=== PATIENT | male | born 2005 | race Caucasian/White ===

== ENCOUNTER 2024-03-26 14:36 | Emergency (ER) | payer SELFPAY ==
[~2024-03-26] VITALS: Ht 177.8 cm; Wt 80.0 kg
[2024-03-26] MEDS: diphenhydrAMINE 50MG/ML VIAL IV STA (15:27)
[2024-03-26] MEDS: NS 1,000 ML IV ONE (15:27)
[2024-03-26 15:32] LABS: BASO # 0.1 10^3/uL (0.0-0.2); EOS # 0.2 10^3/uL (0.0-0.5); EOS % 2.7 % (0.0-3.0); HEMATOCRIT 45.4 % (42.0-52.0); HEMOGLOBIN 15.8 g/dl (13.5-17.5); LYMPH # 1.7 10^3/uL (1.5-5.0); LYMPH % 28.3 % (24.0-44.0); MEAN CORPUSCULAR HGB CONC 34.8 g/dl (32.0-36.5); MEAN CORPUSCULAR VOLUME 86.1 fl (80.0-96.0); MONO # 0.6 10^3/uL (0.0-0.8); MONO % 9.8 % (2.0-8.0); NEUTROPHILS # 3.4 10^3/uL (1.5-8.5); NEUTROPHILS % 57.9 % (36.0-66.0); PLATELET COUNT, AUTOMATED 298 10^3/uL (150-450); RED BLOOD COUNT 5.27 10^6/uL (4.30-6.10); WHITE BLOOD COUNT 5.9 10^3/uL (4.0-10.0)
[2024-03-26] MEDS ORDERED: ISOVUE-370 76% 100ML VIAL As Ordered ONE (15:48)
[2024-03-26 15:58] LABS: LIPASE 35 U/L (12-53)
[2024-03-26 16:00] LABS: ALBUMIN 4.5 G/DL (3.2-5.2); ALKALINE PHOSPHATASE 45 U/L (46-116); ALT/SGPT 36 U/L (7.0-40); AST/SGOT 17 U/L (<34); BILIRUBIN,DIRECT 0.4 MG/DL (<0.4); BILIRUBIN,TOTAL 1.1 MG/DL (0.3-1.2); BLOOD UREA NITROGEN 15 MG/DL (9-23); CALCIUM LEVEL 9.7 MG/DL (8.5-10.1); CARBON DIOXIDE LEVEL 32 MMOL/L (20-31); CHLORIDE LEVEL 105 MMOL/L (98-107); CREATININE FOR GFR 0.77 MG/DL (0.70-1.30); GLUCOSE, FASTING 90 MG/DL (60-100); MAGNESIUM LEVEL 2.2 MG/DL (1.8-2.4); POTASSIUM SERUM 3.9 MMOL/L (3.5-5.1); SODIUM LEVEL 141 MMOL/L (136-145); TOTAL PROTEIN 7.5 G/DL (5.7-8.2)
[2024-03-26 18:51] LABS: CK-MB VALUE MASS < 1.0 NG/ML (<3.6)
[2024-03-26] MEDS ORDERED: BENA25CA4 PO (19:23)
[2024-03-26] MEDS ORDERED: PRED20TA PO (19:23)
[2024-03-26 19:33] VITALS: BP 119/64; TEMP 97.2; O2SAT 99
[2024-03-26 20:00] LABS: CPK CREATINE PHOSPHOKINASE 78 U/L (46-171); MB/CK RELATIVE INDEX 1.28 (< OR =4)
[2024-03-27 16:05] LABS: HIV 1&2 SCREEN NEGATIVE (NEGATIVE)
== END 2024-03-26 19:36 | disposition home or self-care (01) ==
LOC: M ED 14:36
DX: K31.84 Gastroparesis (principal); L50.9 Urticaria, unspecified; Z79.52 Long term (current) use of systemic steroids; Z79.899 Other long term (current) drug therapy
CPT/HCPCS: 74177; 80047; 80048; 80076; 82550; 82553; 83690; 83735; 84443; 84484; 85025; 87389; 93005; 93041; 99284; J1200; Q9967

== ENCOUNTER 2024-03-30 14:37 | Emergency (ER) | payer SELFPAY ==
[~2024-03-30] VITALS: Ht 177.8 cm; Wt 79.8 kg
[~2024-03-30 14:37] MED LIST: BENA25CA4 PO; PRED20TA PO
[2024-03-30] MEDS: ACETAMINOPHEN *IV* 1,000 MG in IV 1 EA IV ONE (15:30)
[2024-03-30] MEDS: ONDANSETRON 4MG 2ML VIAL IV ONE (15:31)
[2024-03-30] MEDS: KETOROLAC 30 MG/ML 1ML VIAL IV ONE (15:31)
[2024-03-30] MEDS: NS 1,000 ML IV ONE (15:32)
[2024-03-30 15:50] LABS: BASO # 0.1 10^3/uL (0.0-0.2); BASO % 0.8 % (0.0-1.0); EOS # 0.2 10^3/uL (0.0-0.5); EOS % 2.5 % (0.0-3.0); HEMATOCRIT 44.8 % (42.0-52.0); HEMOGLOBIN 15.7 g/dl (13.5-17.5); LYMPH # 1.9 10^3/uL (1.5-5.0); LYMPH % 23.9 % (24.0-44.0); MEAN CORPUSCULAR HEMOGLOBIN 30.1 pg (27.0-33.0); MEAN CORPUSCULAR VOLUME 85.8 fl (80.0-96.0); MONO # 0.7 10^3/uL (0.0-0.8); MONO % 9.2 % (2.0-8.0); NEUTROPHILS # 4.9 10^3/uL (1.5-8.5); NEUTROPHILS % 63.5 % (36.0-66.0); PLATELET COUNT, AUTOMATED 312 10^3/uL (150-450); RED BLOOD COUNT 5.22 10^6/uL (4.30-6.10); WHITE BLOOD COUNT 7.7 10^3/uL (4.0-10.0)
[2024-03-30 15:51] LABS: APPEARANCE, URINE CLEAR (CLEAR); BACTERIA, URINE AUTO NEGATIVE (NEGATIVE); BILIRUBIN, URINE AUTO NEGATIVE (NEGATIVE); BLOOD, URINE BLOOD NEGATIVE (NEGATIVE); COLOR, URINE YELLOW (YELLOW); GLUCOSE, URINE (UA) AUTO NEGATIVE (NEGATIVE); KETONE, URINE AUTO NEGATIVE (NEGATIVE); LEUKOCYTE ESTERASE, URINE AUTO NEGATIVE (NEGATIVE); NITRITE, URINE AUTO NEGATIVE (NEGATIVE); PROTEIN, URINE AUTO NEGATIVE (NEGATIVE); RBC, URINE AUTO 1 /HPF (0-3); SQUAMOUS EPITHELIAL CELL UR AU 0 /HPF (0-6); UROBILINOGEN, URINE AUTO 0.2 mg/dL (0.0-2.0); WBC, URINE AUTO 0 /HPF (0-3)
[2024-03-30 16:06] LABS: LIPASE 35 U/L (12-53)
[2024-03-30 16:08] LABS: ALBUMIN 4.6 G/DL (3.2-5.2); ALKALINE PHOSPHATASE 44 U/L (46-116); ALT/SGPT 33 U/L (7.0-40); AST/SGOT 13 U/L (<34); BILIRUBIN,DIRECT 0.3 MG/DL (<0.4); BILIRUBIN,TOTAL 0.8 MG/DL (0.3-1.2); BLOOD UREA NITROGEN 14 MG/DL (9-23); CALCIUM LEVEL 10.1 MG/DL (8.5-10.1); CARBON DIOXIDE LEVEL 29 MMOL/L (20-31); CHLORIDE LEVEL 106 MMOL/L (98-107); CREATININE FOR GFR 0.71 MG/DL (0.70-1.30); GLUCOSE, FASTING 107 MG/DL (60-100); POTASSIUM SERUM 3.7 MMOL/L (3.5-5.1); SODIUM LEVEL 142 MMOL/L (136-145); TOTAL PROTEIN 7.6 G/DL (5.7-8.2)
[2024-03-30] MEDS: fentaNYL 100 MCG/2 ML INJECTION IV ONE (18:16)
[2024-03-30] MEDS: METOCLOPRAMIDE INJ 10MG/2ML VIAL IV ONE (18:16)
[2024-03-30] MEDS ORDERED: MELO15TA28 PO (18:43)
[2024-03-30] MEDS ORDERED: ONDA-282 PO (18:43)
[2024-03-30] MEDS ORDERED: SUCR1SS PO (18:58)
[2024-03-30 19:22] VITALS: BP 140/74; TEMP 97.4; O2SAT 98
== END 2024-03-30 19:39 | disposition home or self-care (01) ==
LOC: M ED 14:37
DX: K80.50 Calculus of bile duct without cholangitis or cholecystitis without obstruction (principal); R11.2 Nausea with vomiting, unspecified; F41.9 Anxiety disorder, unspecified; Z79.83 Long term (current) use of bisphosphonates; Z79.52 Long term (current) use of systemic steroids; Z79.899 Other long term (current) drug therapy
CPT/HCPCS: 76705; 80048; 80076; 81001; 83605; 83690; 85025; 96374; 96375; 99284; J0131; J1885; J2405; J2765; J3010

== ENCOUNTER 2024-05-06 08:47 | Emergency (ER) | payer SELFPAY ==
[~2024-05-06] VITALS: Ht 177.8 cm; Wt 75.2 kg
[~2024-05-06 08:47] MED LIST changes: +MELO15TA28 PO; +ONDA-282 PO; +SUCR1SS PO
[2024-05-06 10:17] LABS: RSV AMPLIFICATION NEGATIVE (NEGATIVE)
[2024-05-06 10:53] VITALS: BP 144/65; TEMP 97.9; O2SAT 98
== END 2024-05-06 11:21 | disposition home or self-care (01) ==
LOC: M ED 08:47
DX: J04.0 Acute laryngitis (principal); K21.9 Gastro-esophageal reflux disease without esophagitis